=== PATIENT | male | born 1930 | race Caucasian/White ===

== ENCOUNTER 2018-02-10 12:59 | Emergency (ER) | payer BC ==
[~2018-02-10] VITALS: Ht 172.7 cm; Wt 70.3 kg
[2018-02-10 13:44] LABS: ABSOLUTE EOSINOPHILS 0.1 thou/uL (0.0-0.7); ABSOLUTE LYMPHOCYTES 1.5 thou/uL (0.8-5.3); ABSOLUTE MONOCYTES 0.5 thou/uL (0.0-1.2); ABSOLUTE NEUTROPHILS 4.4 thou/uL (1.6-8.1); BASOPHILS 0.7 %; EOSINOPHILS 1.4 %; HEMATOCRIT 39.7 % (42.0-52.0); HEMOGLOBIN 13.2 gm/dL (14.0-18.0); LYMPHOCYTES 22.9 %; MCH 31.1 pg (26.0-34.0); MCHC 33.3 g/dL (28.0-37.0); MCV 93.4 fL (80.0-100.0); MPV 8.6 fl. (7.2-11.1); NUCLEATED RBCS 0 /100WBC; PLATELET COUNT* 212 thou/uL (150-400); RBC 4.25 mil/uL (4.50-6.00); RDW-CV 13.7 % (10.5-14.5); WBC 6.5 thou/uL (4.0-11.0)
[2018-02-10 13:48] LABS: PROTIME 10.7 Seconds (9.20-11.50)
[2018-02-10 14:02] LABS: ANION GAP 4 mmol/L (7-16); BUN 24 mg/dL (7-18); CALCIUM 8.4 mg/dL (8.5-10.1); CHLORIDE 101 mmol/L (98-107); CO2 29 mmol/L (21-32); CREATININE 0.8 mg/dL (0.6-1.3); GLUCOSE 88 mg/dL (70-99); POTASSIUM 4.5 mmol/L (3.5-5.1); SODIUM 134 mmol/L (136-145)
[2018-02-10 14:08] LABS: ALBUMIN 3.2 g/dL (3.4-5.0); ALKALINE PHOSPHATASE 77 U/L (46-116); LIPASE 177 U/L (73-393); SGOT 21 U/L (15-37); SGPT 29 U/L (30-65); TOTAL BILIRUBIN 0.4 mg/dL (<0.1-1.0); TROPONIN-I LEVEL <0.06 ng/mL (<0.06)
[2018-02-10 14:46] LABS: URINE BILIRUBIN NEGATIVE (Negative); URINE BLOOD NEGATIVE (Negative); URINE CLARITY CLEAR; URINE COLOR YELLOW; URINE GLUCOSE-RANDOM NEGATIVE (Negative); URINE KETONES TRACE (Negative); URINE LEUKOCYTES 1+ (Negative); URINE NITRITE NEGATIVE (Negative); URINE PROTEIN NEGATIVE (Negative); URINE SPECIFIC GRAVITY 1.025 (1.005-1.030); URINE UROBILINOGEN 0.2 E.U./dl (0.2-1.0)
[2018-02-10 14:55] LABS: HYALINE CASTS >10 Many /LPF (None Seen); MUCUS 0-3 Light strn/LPF (None Seen); SQUAMOUS 0-3 Few /LPF (0-3); URINE WBC 0-5 Rare /HPF (0-5)
[2018-02-10 14:56] LABS: BACTERIA 1-9 Few /HPF (None Seen); CRYSTALS None Seen /LPF (None Seen); URINE RBC None Seen /HPF (0-2)
[2018-02-10] MEDS ORDERED: KEFLEX500 M1 PO (15:47)
[2018-02-10] MEDS ORDERED: VOLTAREN GEL 1100 G2 TOP (15:48)
[2018-02-10 16:08] VITALS: BP 147/48
--- NOTE | 2018-02-10 16:31 | EKG ---
[place] [address] ELECTROCARDIOGRAM REPORT Name: KENDRA RODGERS Room: [facility]#: [id number] Admission: 02/10/18 Attend Phys: Discharge: 02/10/18 Date of : 34 Report #: [id number] THIS REPORT FOR: //name// [facility] ED Test Date: 2018-02-10 Test Time: 13:16:45 Pat Name: KENDRA RODGERS Department: Room: Gender: Recruit Instructor: : [id number] Requested By: Dottie Medina Order Number: [id number] MD: Von Cadet Measurements Intervals [place] Rate: 56 P: 22 SC: 179 QRS: -33 QRSD: 111 T: 102 QT: 461 QTc: 445 Interpretive Statements Sinus rhythm Left atrial enlargement LVH with IVCD and secondary repol abnrm Compared to ECG 03/21/2007 08:01:59 Atrial abnormality now present Intraventricular conduction delay now present Left ventricular hypertrophy now present Electronically Signed On 02-10-2018 16:31:31 CDT by Von Cadet [email or web address] <ELECTRONICALLY SIGNED> By: Von Cadet MD, [facility] 02/10/18 1631 1316 1316 Von Cadet MD, [facility] /EPI
== END 2018-02-10 16:09 | disposition home or self-care (01) ==
LOC: M.ERS 12:59
PROVIDERS: Physician Assistant
DX: I95.9 Hypotension, unspecified (principal); D64.9 Anemia, unspecified; N39.0 Urinary tract infection, site not specified; I10 Essential (primary) hypertension; E78.00 Pure hypercholesterolemia, unspecified; Z88.2 Allergy status to sulfonamides

== ENCOUNTER 2018-02-14 13:19 | Emergency (ER) | payer BC ==
[~2018-02-14] VITALS: Ht 172.7 cm; Wt 68.0 kg
[~2018-02-14 13:19] MED LIST: KEFLEX500 M1 PO; VOLTAREN GEL 1100 G2 TOP
[2018-02-14] MEDS ORDERED: PROSCAR 5MG TABL5 MG PO (13:30)
[2018-02-14] MEDS ORDERED: FLOMAX0.4 MG PO (13:30)
[2018-02-14] MEDS ORDERED: PRINIVIL20 MG PO (13:30)
[2018-02-14] MEDS ORDERED: SYNTHROID112 MC1 PO (13:30)
[2018-02-14] MEDS ORDERED: ASPIR 8181 MG PO (13:30)
[2018-02-14] MEDS ORDERED: CERAVE237 ML TOP (13:31)
[2018-02-14] MEDS ORDERED: TRIAMCINOLONE A80 G2 TOP (13:31)
[2018-02-14] MEDS ORDERED: IRON325 PO (13:32)
[2018-02-14] MEDS ORDERED: GINKGO BILOBA120 MG PO (13:32)
[2018-02-14] MEDS ORDERED: ZANAFLEX4 MG PO (13:32)
[2018-02-14] MEDS ORDERED: ACETYL L-CARNI1 EACH PO (13:33)
[2018-02-14] MEDS ORDERED: ECHINACEA400 MG PO (13:33)
[2018-02-14] MEDS ORDERED: COQ-10100 MG PO (13:33)
[2018-02-14] MEDS ORDERED: EPA-DHA 720 SO1 EACH PO (13:38)
[2018-02-14] MEDS ORDERED: KRILL OIL 1,001 EAC1 PO (13:39)
[2018-02-14] MEDS ORDERED: MULTI VITAMIN1 EACH PO (13:39)
[2018-02-14] MEDS ORDERED: VITAMIN D2000 UNIT PO (13:39)
[2018-02-14] MEDS ORDERED: LUTEIN 15 MG S1 EACH PO (13:40)
[2018-02-14] MEDS ORDERED: MAGNESIUM250 M1 PO (13:40)
[2018-02-14] MEDS ORDERED: POTASSIUM GLUC500 MG PO (13:41)
[2018-02-14] MEDS ORDERED: SELENIMIN200 MCG PO (13:42)
[2018-02-14] MEDS ORDERED: D-RIBOSE1 GM PO (13:42)
[2018-02-14] MEDS ORDERED: ZINC50 MG PO (13:42)
[2018-02-14 14:07] LABS: URINE BILIRUBIN NEGATIVE (Negative); URINE BLOOD NEGATIVE (Negative); URINE CLARITY CLEAR; URINE COLOR YELLOW; URINE GLUCOSE-RANDOM NEGATIVE (Negative); URINE KETONES NEGATIVE (Negative); URINE LEUKOCYTES-REFLEX TRACE (Negative); URINE NITRITE-REFLEX NEGATIVE (Negative); URINE PROTEIN NEGATIVE (Negative); URINE UROBILINOGEN 0.2 E.U./dl (0.2-1.0)
[2018-02-14 14:16] LABS: ABSOLUTE BASOPHILS 0.1 thou/uL (0.0-0.2); ABSOLUTE EOSINOPHILS 0.1 thou/uL (0.0-0.7); ABSOLUTE LYMPHOCYTES 1.6 thou/uL (0.8-5.3); ABSOLUTE MONOCYTES 0.6 thou/uL (0.0-1.2); ABSOLUTE NEUTROPHILS 4.9 thou/uL (1.6-8.1); HEMATOCRIT 42.3 % (42.0-52.0); HEMOGLOBIN 13.9 gm/dL (14.0-18.0); LYMPHOCYTES 22.3 %; MCH 30.6 pg (26.0-34.0); MCHC 32.9 g/dL (28.0-37.0); MCV 93.2 fL (80.0-100.0); MONOCYTES 7.9 %; MPV 8.6 fl. (7.2-11.1); NUCLEATED RBCS 0 /100WBC; PLATELET COUNT* 235 thou/uL (150-400); POLYS 67.8 %; RBC 4.54 mil/uL (4.50-6.00); RDW-CV 13.5 % (10.5-14.5); WBC 7.3 thou/uL (4.0-11.0)
[2018-02-14 14:20] LABS: BACTERIA-REFLEX 1-9 Few /HPF (None Seen); CASTS None Seen /LPF (None Seen); CRYSTALS None Seen /LPF (None Seen); MUCUS None Seen strn/LPF (None Seen); SQUAMOUS 4-10 Moderate /LPF (0-3); URINE RBC 0-2 Rare /HPF (0-2); URINE WBC-REFLEX 0-5 Rare /HPF (0-5)
[2018-02-14 14:23] LABS: CALCIUM 8.7 mg/dL (8.5-10.1); CREATININE 0.8 mg/dL (0.6-1.3); POTASSIUM 4.1 mmol/L (3.5-5.1)
[2018-02-14 14:28] LABS: ALBUMIN 3.4 g/dL (3.4-5.0); TOTAL BILIRUBIN 0.5 mg/dL (<0.1-1.0); TOTAL PROTEIN 7.4 g/dL (6.4-8.2)
[2018-02-14] MEDS ORDERED: NORCO 5-325 TA1 EAC1 PO (15:29)
[2018-02-14 15:47] VITALS: BP 180/81
== END 2018-02-14 15:48 | disposition home or self-care (01) ==
LOC: M.ERS 13:19
PROVIDERS: Nurse Practitioner Family
DX: M48.56XA Collapsed vertebra, not elsewhere classified, lumbar region, initial encounter for fracture (principal); E78.00 Pure hypercholesterolemia, unspecified; I10 Essential (primary) hypertension; Z85.51 Personal history of malignant neoplasm of bladder; Z79.82 Long term (current) use of aspirin; Z79.899 Other long term (current) drug therapy

== ENCOUNTER 2018-09-15 14:18 | Emergency (ER) | payer BC ==
[~2018-09-15] VITALS: Ht 172.7 cm; Wt 65.8 kg
[~2018-09-15 14:18] MED LIST changes: +ACETYL L-CARNI1 EACH PO; +ASPIR 8181 MG PO; +CERAVE237 ML TOP; +COQ-10100 MG PO; +D-RIBOSE1 GM PO; +ECHINACEA400 MG PO; +EPA-DHA 720 SO1 EACH PO; +FLOMAX0.4 MG PO; +GINKGO BILOBA120 MG PO; +IRON325 PO; +KRILL OIL 1,001 EAC1 PO; +LUTEIN 15 MG S1 EACH PO; +MAGNESIUM250 M1 PO; +MULTI VITAMIN1 EACH PO; +NORCO 5-325 TA1 EAC1 PO; +POTASSIUM GLUC500 MG PO; +PRINIVIL20 MG PO; +PROSCAR 5MG TABL5 MG PO; +SELENIMIN200 MCG PO; +SYNTHROID112 MC1 PO; +TRIAMCINOLONE A80 G2 TOP; +VITAMIN D2000 UNIT PO; +ZANAFLEX4 MG PO; +ZINC50 MG PO
[2018-09-15 15:52] VITALS: BP 182/105
== END 2018-09-15 15:44 | disposition home or self-care (01) ==
LOC: M.ERS 14:18
DX: S51.811A Laceration without foreign body of right forearm, initial encounter (principal); S40.012A Contusion of left shoulder, initial encounter; E78.00 Pure hypercholesterolemia, unspecified; I10 Essential (primary) hypertension; Z85.51 Personal history of malignant neoplasm of bladder; W18.39XA Other fall on same level, initial encounter; Y93.89 Activity, other specified; Y92.89 Other specified places as the place of occurrence of the external cause; Y99.8 Other external cause status

== ENCOUNTER → 2018-09-28 | Outpatient (CLI) | payer BC | LOC: M.MRI 07:23 | DX: M75.102 Unspecified rotator cuff tear or rupture of left shoulder, not specified as traumatic (principal); S46.212A Strain of muscle, fascia and tendon of other parts of biceps, left arm, initial encounter; M19.012 Primary osteoarthritis, left shoulder; X58.XXXA Exposure to other specified factors, initial encounter; Y93.89 Activity, other specified; Y92.89 Other specified places as the place of occurrence of the external cause; Y99.8 Other external cause status ==